=== PATIENT | female | born 1950 | race Caucasian/White ===

== ENCOUNTER → 2017-01-27 | Outpatient (CLI) | payer OTHER ==
[~2017-01-27] MED LIST: ADULT LOW DOSE81 M1 PO; ADVAIR 250/501 DISK IH; ADVAIR HFA120 INHAL1 IH; ADVAIR HFA120 INHALA IH; ALLERGY10 M1 PO; ALPRAZOLAM0.25 MG PO; AMITRIPTYLINE100 M1 PO; ASPIRIN81 M1 PO; CEFTIN500 MG PO; CEFUROXIME250 MG PO; COMBIVENT INH14.7 GM IH; COMBIVENT RESPIM4 GM IH; CYMBALTA60 MG PO; Cymbalta PO; DAILY VITAMIN1 EAC8 PO; DEMADEX10 MG PO; DEXILANT60 MG PO; DuoNeb IH; FLONASE16 GM NS; Flexeril PO; GLUCOPHAGE500 MG PO; Glucophage PO; HYDROCHLOROTHIA25 MG PO; KLONOPIN1 MG PO; KlonoPIN PO; LEVAQUIN500 MG PO; LIPITOR20 MG PO; Levaquin PO; MEDROL DOSEPAK4 MG PO; METFORMIN HCL500 MG PO; MULTIVITAMIN1 EAC1 PO; PHENERGAN-CODE120 ML PO; PREDNISONE10 MG PO; PREDNISONE20 MG PO; PREDNISONE5 M2 PO; PROVENTIL,2.5 MG/3 M IH; PROVENTIL,200 INHALA IH; Protonix PO; Robitussin, Organidi PO; SINGULAIR10 MG PO; VITAMIN D31000 UNIT PO; VITAMIN E1000 UNI1 PO; ZANTAC300 MG PO; allegra; predniSONE PO
== END | disposition home or self-care (01) ==
LOC: NUC 10:39
DX: M41.86 Other forms of scoliosis, lumbar region (principal); M19.011 Primary osteoarthritis, right shoulder; M19.072 Primary osteoarthritis, left ankle and foot; M19.071 Primary osteoarthritis, right ankle and foot; M46.95 Unspecified inflammatory spondylopathy, thoracolumbar region; R93.7 Abnormal findings on diagnostic imaging of other parts of musculoskeletal system; R07.89 Other chest pain; R53.1 Weakness
CPT/HCPCS: 78306; A9503